=== PATIENT | male | born 1955 ===

== ENCOUNTER 2021-06-26 12:05 | Emergency (ER) | payer BC ==
[2021-06-26 12:21] VITALS: BP 136/71; PULSE 62; TEMP 98.1; BMI 25.0
== END 2021-06-26 16:08 | disposition home or self-care (01) ==
LOC: JER 12:05
DX: S09.90XA Unspecified injury of head, initial encounter (principal); W10.9XXA Fall (on) (from) unspecified stairs and steps, initial encounter
CPT/HCPCS: 70450-TC; 99284-25

== ENCOUNTER 2024-02-24 20:48 | Emergency (ER) | payer BC, OTHER ==
[2024-02-24 20:57] VITALS: BP 124/75; PULSE 66; RESP 20; TEMP 97.8; BMI 25.3
[2024-02-24] MEDS ORDERED: ACETAMINOPHEN 500 MG TABLET (FP) ONE (22:13)
[2024-02-24] MEDS: ACETAMINOPHEN 500 MG TABLET (FP) PO ONE (22:18)
== END 2024-02-25 01:33 | disposition home or self-care (01) ==
LOC: JER 20:48
DX: S40.021A Contusion of right upper arm, initial encounter (principal); M54.2 Cervicalgia; R51.9 Headache, unspecified; M54.50 Low back pain, unspecified; M25.561 Pain in right knee; M25.511 Pain in right shoulder; M25.512 Pain in left shoulder; V43.63XA Car passenger injured in collision with pick-up truck in traffic accident, initial encounter; Y92.410 Unspecified street and highway as the place of occurrence of the external cause
CPT/HCPCS: 70450-TC; 72100-TC-FY; 72125-TC; 93005; 93010; 99285-25